=== PATIENT | male | born 1970 | race Two or more races ===

== ENCOUNTER 2019-06-09 20:45 | Observation (INO) | payer SELFPAY ==
[~2019-06-09] VITALS: Ht 170.2 cm; Wt 73.6 kg
[2019-06-09 22:10] LABS: BASOPHILS 0.3 % (0-2); EOSINOPHILS 3.1 % (0-7); HEMATOCRIT 41.7 % (42.0-54.0); HEMOGLOBIN 14.4 g/dL (13.5-17.5); IMMATURE GRANULOCYTES 0.5 % (0-5); MCH 30.1 pg (26.0-34.0); MCHC 34.5 g/dL (31.0-37.0); MCV 87.1 fL (80.0-100.0); MEAN PLATELET VOLUME 12.6 fL (7.4-10.4); MONOCYTES 8.5 % (2-11); NEUTROPHILS 61.6 % (40-80); PLATELET COUNT 199 10x3/uL (130-400); RBC 4.79 10x6/uL (4.20-6.10); RDW 14.5 % (11.5-14.5); WBC 6.5 10x3/uL (4.8-10.8)
[2019-06-09 22:35] LABS: ALBUMIN 3.6 g/dL (3.4-5.0); ALKALINE PHOSPHATASE 92 U/L (46-116); ALT (SGPT) 15 U/L (10-68); AMYLASE - SERUM 70 U/L (25-115); BILIRUBIN - TOTAL 0.36 mg/dL (0.2-1.3); CALC OSMOLALITY 276 mosm/kg (275-300); CALCIUM 7.8 mg/dL (8.5-10.1); CARBON DIOXIDE 26.9 mmol/L (21.0-32.0); CHLORIDE - SERUM 103 mmol/L (98-107); CREATININE - SERUM 0.9 mg/dL (0.6-1.3); GLUCOSE 98 mg/dL (74-106); LIPASE 158 U/L (73-393); POTASSIUM - SERUM 3.4 mmol/L (3.5-5.1); PROTEIN - SERUM 7.2 g/dL (6.4-8.2); SODIUM 138 mmol/L (136-145); UREA NITROGEN 14 mg/dL (7-18); eGFR NON AFRICAN AMERICAN > 90 mL/min (90-120)
[2019-06-09 22:36] LABS: TROPONIN-I < 0.017 ng/mL (0.000-0.060)
[2019-06-09 22:54] LABS: APPEARANCE CLEAR (CLEAR); BILIRUBIN NEGATIVE (NEGATIVE); COLOR YELLOW (YELLOW); GLUCOSE NEGATIVE (NEGATIVE); KETONE NEGATIVE (NEGATIVE); NITRITE NEGATIVE (NEGATIVE); PROTEIN NEGATIVE (NEGATIVE); UROBILINOGEN NORMAL (NORMAL)
--- NOTE | 2019-06-09 23:44 | NUR ---
PT RETURNED TO ROOM FROM CT
--- NOTE | 2019-06-10 01:59 | NUR ---
BLADDER SCAN COMPLETED, 149ML.
[2019-06-10 04:47] VITALS: BP 111/76; BMI 25.4
[2019-06-10 07:37] VITALS: BP 127/83
--- NOTE | 2019-06-10 11:41 | NUR ---
ASKED NURSE TO PAGE AND SEE IF PT IS OK FOR DISCHARGE. GAVE VERBAL APPROVAL FROM HIS STANDPOINT FOR PT TO DISCHARGE AND F/U IN 6MONTHS FOR ANOTHER CTA
[2019-06-10 14:55] VITALS: Ht 170.2 cm; Wt 73.6 kg
--- NOTE | 2019-06-10 17:17 | NUR ---
DISCHARGE INSTRUCTIONS REVIEWED WITH PT AND ALL QUESTIONS ANSWERED. PIV REMOVED WITH CATHETER TIP INTACT. PT TAKEN TO FRONT OF THE HOSPITAL VIA WHEELCHAIR
== END 2019-06-10 17:18 | disposition home or self-care (01) ==
LOC: D.ER 20:45 → D.M3 06-10 03:57 → OBSVTIME 06-10 03:57 → D.M3 06-10 03:57
PROVIDERS: Family Medicine; ADMIT Emergency Medicine; ATTEND Emergency Medicine
DX: K86.9 Disease of pancreas, unspecified (principal); E87.6 Hypokalemia; E86.0 Dehydration; D64.9 Anemia, unspecified

== ENCOUNTER → 2019-07-08 17:38 | Outpatient (CLI) | payer SELFPAY ==
[2019-06-10 14:55] VITALS: BMI 25.4
== END | disposition home or self-care (01) ==
LOC: D.LABREF 17:38
PROVIDERS: ATTEND Urology
DX: R31.9 Hematuria, unspecified (principal); D72.819 Decreased white blood cell count, unspecified